=== PATIENT | female | born 1970 | race African-American/Black ===

== ENCOUNTER 2019-08-30 13:40 | Emergency (ER) | payer OTHER ==
[2019-08-30 14:02] VITALS: BP 170/92; PULSE 80; TEMP 98.4; BMI 41.7
--- NOTE | 2019-08-30 15:29 | PDOC ---
History of Present Illness <Martinez King - Last Filed: 08/30/19 16:00> - General History Source: Patient Exam Limitations: No Limitations - History of Present Illness Initial Comments: 08/30/19 15:22 48yF w PMHx PE on xarelto and obesity presenting w minimal gingival bleeding and swelling above teeth 10 not stopped w paper towels after 1 min. Planned teeth removal later this week. Denies fever, dysnpnea, lightheadedness, LOC. <BrittaneyFelipe - Last Filed: 08/31/19 00:03> - General Chief Complaint: Toothache Stated Complaint: EDEMA Time Seen by Provider: 08/30/19 15:16 Past History <Martinez King - Last Filed: 08/30/19 16:00> - Past Medical History Anemia: No Asthma: No Cancer: No Cardiac Disorders: No CVA: No COPD: No CHF: No Dementia: No Diabetes: No GI Disorders: No Disorders: No HTN: No Hypercholesterolemia: No Liver Disease: No Seizures: No Thyroid Disease: No - Surgical History Abdominal Surgery: No Appendectomy: No Cardiac Surgery: No Cholecystectomy: No Lung Surgery: No Neurologic Surgery: No Orthopedic Surgery: Yes (Bilateral Knee Arthroscopies) - Psycho Social/Smoking Cessation Hx Smoking History: Unknown if ever smoked Have you smoked in the past 12 months: No Information on smoking cessation initiated: No Hx Alcohol Use: No Drug/Substance Use Hx: No Substance Use Type: None Hx Substance Use Treatment: No <BrittaneyFelipe - Last Filed: 08/31/19 00:03> - Past Medical History Allergies/Adverse Reactions: Allergies Allergy/AdvReac Type Severity Reaction Status Date / Time No Known Allergies Allergy Verified 08/30/19 14:03 Home Medications: Ambulatory Orders Oxycodone HCl/Acetaminophen [Percocet 10-325 mg Tablet -] 1 tab PO Q6H PRN 10/14 Trazodone HCl [Oleptro ER] 150 mg PO HS 10/14/14 Alprazolam [Xanax -] 0.25 mg PO BID PRN 08/06/15 Fluoxetine HCl [Prozac] 20 mg PO DAILY 08/06/15 Amoxicillin/Potassium Clav [Augmentin 875-125 Tablet] 1 each PO BID 7 Days #14 tablet 08/30/19 Review of Systems - Review of Systems Constitutional: No: Chills, Fever HEENTM: No: Eye Pain, Nose Pain, Throat Pain Respiratory: No: Cough, Shortness of Breath Cardiac (ROS): No: Chest Pain, Palpitations ABD/GI: No: Abdominal Distended, Nausea, Vomiting : No: Burning, Dysuria Musculoskeletal: No: Back Pain, Joint Pain Integumentary: No: Bruising, Dryness Neurological: No: Headache, Numbness Psychiatric: No: Anxiety, Depression Endocrine: No: Intolerance to Cold, Intolerance to Heat Hematologic/Lymphatic: Yes: Easy Bleeding. No: Anemia <Felipe Quispe - Last Filed: 08/31/19 00:03> *Physical Exam - Vital Signs Last Vital Signs Temp Pulse Resp BP Pulse Ox 98.4 F 80 16 170/92 100 08/30/19 13:59 08/30/19 13:59 08/30/19 13:59 08/30/19 13:59 08/30/19 13:59 <Martinez King - Last Filed: 08/30/19 16:00> - Vital Signs Last Vital Signs Temp Pulse Resp BP Pulse Ox 98.4 F 80 16 170/92 100 08/30/19 13:59 08/30/19 13:59 08/30/19 13:59 08/30/19 13:59 08/30/19 13:59 - Physical Exam General Appearance: Yes: Nourished, Appropriately Dressed. No: Apparent Distress HEENT: positive: EOMI, MARTINE, Normal Voice, Hearing Grossly Normal, Other ( minimal gingival bleeding and small abscess above teeth 10) Respiratory/Chest: positive: Lungs Clear, Normal Breath Sounds. negative: Chest Tender, Respiratory Distress Gastrointestinal/Abdominal: positive: Normal Bowel Sounds, Flat, Soft. negative : Tender, Organomegaly Extremity: positive: Normal Capillary Refill Integumentary: positive: Normal Color. 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 negative: Numbness, Confused, Disoriented <Felipe Quispe - Last Filed: 08/31/19 00:03> Medical Decision Making - Medical Decision Making 08/30/19 15:29 48yF w PMHx PE on xarelto and obesity presenting w minimal gingival bleeding and small dental abscess above teeth 10. Packed mouth w gauze, stopped bleeding after 10min. Hemodynamically stable. Given augmentin. DC home w augmentin and dentist f/u <Felipe Quispe - Last Filed: 08/31/19 00:03> Discharge <Martinez King - Last Filed: 08/30/19 16:00> - Discharge Information Problems reviewed: Yes - Admission No <Brittaney,Felipe - Last Filed: 08/31/19 00:03> - Discharge Information Clinical Impression/Diagnosis: Dental abscess Condition: Improved Disposition: HOME - Additional Discharge Information Prescriptions: Amoxicillin/Potassium Clav [Augmentin 875-125 Tablet] 1 each PO BID 7 Days #14 tablet - Follow up/Referral Referrals: Estevan Velazquez [Primary Care Provider] - - Patient Discharge Instructions Patient Printed Discharge Instructions: DI for Tooth Abscess Additional Instructions: Pack gauze at site of bleeding for 10 minutes minimum without removing gauze. Apply ice for 15 minutes at a time to reduce swelling and bleeding. Take tylenol if you have pain Take the prescribed augmentin as directed Follow up with your dentist. Go to the emergency dentist listed below if you cannot breath or have worsening pain despite meds. Emergency Dentist [facility] [address] [facility], [address] [place] [address] - Post Discharge Activity
[2019-08-30] MEDS ORDERED: AMOX TR/POT CLAV 875MG/125MG TABLETS (FP) PO ONE (16:02)
[2019-08-30] MEDS ORDERED: AMOX TR/POT CLAV 875MG/125MG TABLETS (FP) ONE (16:06)
--- NOTE | 2019-08-30 16:32 | PDOC ---
Documentation entered by Titi Will SCRIBE, acting as scribe for Kelsi Hernandez MD. Kelsi Hernandez MD: This documentation has been prepared by the Suman morocho Nirvannie, SCRIBE, under my direction and personally reviewed by me in its entirety. I confirm that the documentation accurately reflects all work, treatment, procedures, and medical decision making performed by me. Attending Attestation - Resident Resident Name: BrittaneyFelipe - ED Attending Attestation I have performed the following: I have examined & evaluated the patient, The case was reviewed & discussed with the resident, I agree w/resident's findings & plan, Exceptions are as noted - HPI HPI: 08/30/19 15:58 The patient is a 48 year old female, with a significant past medical history of PE (on Xarelto) and obesity, who presents to the emergency department with bleeding and swelling to the gums (approximately above the 10th tooth), could not stop the bleeding with paper towel. Patient notes he will be having the tooth removed later this week. She denies recent lightheadedness or dizziness. She denies any difficulty swallowing or speaking. Allergies: NKDA - Physicial Exam PE: 08/30/19 16:06 Agree with resident exam. PAteint is alert and oriented x 3 and in no acute distress. + L sided facial swelling with small area of periapical fluctuance over the incisor. - Medical Decision Making 08/30/19 16:15 pt presents to the ED with small dental abscess. + minimal facial swelling, no fever or trismus. Will treat with antibiotics and advise to use tylenol for pain control. Will discharge home with instructions to follow up with dental and to return to the ED for worsening swelling.
== END 2019-08-30 16:41 | disposition home or self-care (01) ==
LOC: JER 13:40
DX: K04.7 Periapical abscess without sinus (principal); K06.8 Other specified disorders of gingiva and edentulous alveolar ridge; Z86.711 Personal history of pulmonary embolism; Z79.01 Long term (current) use of anticoagulants; Z68.41 Body mass index [BMI] 40.0-44.9, adult; E66.01 Morbid (severe) obesity due to excess calories
CPT/HCPCS: 99283-25